=== PATIENT | female | born 1970 | race Caucasian/White ===

== ENCOUNTER 2017-12-20 10:01 | Emergency (ER) | payer OTHER ==
[~2017-12-20] VITALS: Ht 160 cm; Wt 59.1 kg
[2017-12-20 10:16] VITALS: TEMP 98.5
[2017-12-20] MEDS ORDERED: SYNTHROID0.075 MG/T PO (10:24)
[2017-12-20] MEDS ORDERED: LEXAPRO20 MG PO (10:24)
[2017-12-20] MEDS ORDERED: KLONOPIN 0.5MG0.5 MG PO (10:25)
[2017-12-20 12:33] VITALS: BP 99/66; PULSE 56
== END 2017-12-20 12:34 | disposition home or self-care (01) ==
LOC: COL.ER 10:01
DX: S61.213A Laceration without foreign body of left middle finger without damage to nail, initial encounter (principal); S67.195A Crushing injury of left ring finger, initial encounter; S67.193A Crushing injury of left middle finger, initial encounter; F41.9 Anxiety disorder, unspecified; F32.9 Major depressive disorder, single episode, unspecified; W23.0XXA Caught, crushed, jammed, or pinched between moving objects, initial encounter

== ENCOUNTER → 2017-12-30 | Outpatient (CLI) | payer OTHER ==
[~2017-12-30] MED LIST: KLONOPIN 0.5MG0.5 MG PO; LEXAPRO20 MG PO; SYNTHROID0.075 MG/T PO
== END ==
LOC: MC.RAD 10:51
DX: Z12.31 Encounter for screening mammogram for malignant neoplasm of breast (principal); Z98.82 Breast implant status

== ENCOUNTER 2019-04-07 12:55 | Emergency (ER) | payer OTHER ==
[~2019-04-07] VITALS: Ht 160 cm; Wt 53.6 kg
[2019-04-07 13:02] VITALS: TEMP 97.8
[2019-04-07 13:36] LABS: BASO # 0.1 (0.0-0.2); BASO % 0.9 % (0.0-2.0); EOS # 0.1 (0.0-0.7); EOS % 1.7 % (0-4.0); GRAN # 2.7 (1.4-6.5); GRAN % 50.4 % (42.2-75.2); HEMATOCRIT 41.8 % (37.0-47.0); HEMOGLOBIN 14.2 g/dl (12.5-16.0); LYMPH # 2.1 (1.2-3.4); LYMPH % 37.9 % (20.0-51.0); MEAN CELL VOLUME 91 fl (80.0-100.0); MEAN CORPUSCULAR HEMOGLOBIN 31 pg (27.0-31.0); MEAN CORPUSCULAR HGB CONC 34 g/dl (33.0-37.0); MEAN PLATELET VOLUME 10.6 fl (7.4-10.4); MONO # 0.5 (0.1-0.6); MONO % 8.9 % (1.7-9.3); PLATELET COUNT 246 K/mm3 (130-400); RED BLOOD COUNT 4.62 M/mm3 (4.10-5.30); REDCELL DISTRIBUTION WIDTH-CV 12.7 % (11.5-14.5)
[2019-04-07 13:45] LABS: ALANINE AMINOTRANSFERASE 21 U/L (9-52); ALBUMIN 5.2 gm/dL (3.5-5.0); ALKALINE PHOSPHATASE 78 U/L (50-136); ANION GAP 13 mmol/L (7-16); AST,SGOT 30 U/L (15-37); BILIRUBIN,TOTAL 0.5 mg/dL (0.0-1.0); BLOOD UREA NITROGEN 11 mg/dL (7-17); CALCIUM 9.7 mg/dL (8.4-10.2); CARBON DIOXIDE 23 mmol/L (22-30); CHLORIDE 102 mmol/L (98-107); CREATININE, serum 0.74 (0.52-1.25); GLUCOSE 125 mg/dL (74-106); POTASSIUM 3.6 mmol/L (3.4-5.0); SODIUM 139 mmol/L (137-145)
[2019-04-07 13:56] LABS: TROPONIN-I < 0.012 ng/mL (0.000-0.035)
[2019-04-07] MEDS ORDERED: ZOFRAN 4MG T4 MG/TAB PO (15:23)
[2019-04-07] MEDS ORDERED: ANTIVERT 25MG25 MG PO (15:23)
[2019-04-07 15:30] VITALS: BP 127/97; PULSE 82
== END 2019-04-07 15:30 | disposition home or self-care (01) ==
LOC: COL.ER 12:55
PROVIDERS: Emergency Medicine
DX: R42 Dizziness and giddiness (principal); F41.9 Anxiety disorder, unspecified; Z98.890 Other specified postprocedural states
CPT/HCPCS: J2250; J2405; J2550; J7030

== ENCOUNTER → 2019-05-17 | Outpatient (CLI) | payer OTHER ==
[~2019-05-17] MED LIST changes: +ANTIVERT 25MG25 MG PO; +ZOFRAN 4MG T4 MG/TAB PO
== END ==
LOC: MC.RAD 08:55
DX: Z12.31 Encounter for screening mammogram for malignant neoplasm of breast (principal); Z98.82 Breast implant status